=== PATIENT | female | born 1985 | race Caucasian/White ===

== ENCOUNTER → 2017-03-30 | Outpatient (CLI) | payer OTHER | LOC: FIMAGING 12:05 | PROVIDERS: ATTEND Advanced Practice Midwife | DX: Z36 Encounter for antenatal screening of mother (principal) ==

== ENCOUNTER 2017-06-29 20:13 | Observation (INO) | payer SELFPAY ==
[2017-06-29] MEDS ORDERED: LR 1,000 ML IV ONE (20:56)
--- NOTE | 2017-06-29 21:01 | SOAPPROG ---
SOAP Progress Note Assessment/Plan: Assessment: 31-year-old @ 34.5 weeks with c/o contractions since this afternoon. Plan: 1. IV Fluid Hydration 2. Monitor [place] and FHR 3. Await fFN results 06/29/17 20:57 Subjective: 31 yo @ 34.5 weeks presents with complaints of uterine cramping since afternoon. She states cramping has lessened since she decided to head to hospital. She denies loss of fluid or vaginal bleeding. She has h/o 1 prior vaginal delivery at term in October 2015. She has received care from midwives at [facility] during current . She denies problems during current . Objective: Bedside US: Transabdominal: Vertex, anterior placenta, grossly normal fluid and anatomy Transvaginal: CL = 4.27cm Physical Exam - Physical Exam General Appearance: alert, no apparent distress Neck: supple Respiratory: lungs clear, normal breath sounds Cardiac/Chest: regular rate, rhythm Abdomen: non-tender, soft, other (gravid, S=D) Pelvic Exam: normal external exam, other (fFN and GBS swabs performed, cervix and vaginal WNL with no pooling on SSE, CE: FT external os, thick, posterior) Rectal: deferred Skin: normal color, warm/dry Extremities: normal range of motion, non-tender, normal inspection Neuro/Psych: no motor/sensory deficits, alert, normal mood/affect, oriented x 3 ICD10 Worksheet Patient Problems: Problems Problem Status Onset uterine contractions Acute - ICD10 Problem Qualifiers (1) uterine contractions
--- NOTE | 2017-06-29 21:49 | PDGENHP ---
History and Physical - Chief Complaint labor, transfer from [facility] - History of Present Illness 36-year-old G1 @ 40.1 weeks gestation (EDC 06/21/17 by LMP c/w scan) presents after trial of labor at [facility]. She was reportedly 6 cm dilated when she decided to present to [facility]. Care has been with [facility] midwives. Past medical history is significant for anxiety, not currently on meds. No complications in current . A+ / Antibody screen negative / RPR NR / HIV NR / Rubella Immune / HBsAg Neg / Hep C Neg / Chlamydia/ Gonorrhea Neg/Neg / cfDNA WNL / 1hr GTT 81 / GBS Negative. History Information - Allergies/Home Medication List Allergies/Adverse Reactions: No Known Allergies Allergy (Unverified 06/29/17 20:50) - Social History Smoking Status: Former smoker Review of Systems Review of Systems: Physical Exam Physical Exam: Assessment & Plan Assessment: uterine contractions (Acute)
--- NOTE | 2017-06-29 23:04 | SOAPPROG ---
SOAP Progress Note Assessment/Plan: Assessment: 31-year-old @ 34.5 weeks with c/o contractions since this afternoon. Plan: 1. IV Fluid Hydration 2. Monitor [place] and FHR 3. Await fFN results 06/29/17 20:57 06/29/17 23:02 Contractions abated s/p IVF NST Reactive, Cat I fFN Negative, CL = >4cm CE: FT external os with no change on repeat exam Subjective: Patient reports that she has not felt contractions since IVF hydration. Wants to go home if not in labor. Objective: CE: FT/thick/posterior/no change from initial exam FHR: 140, cat I [place]: occasional contractions ICD10 Worksheet Patient Problems: Problems Problem Status Onset uterine contractions Acute - ICD10 Problem Qualifiers (1) uterine contractions
== END 2017-06-29 23:15 | disposition home or self-care (01) ==
LOC: FLD 20:13
PROVIDERS: ADMIT Obstetrics & Gynecology Gynecology; ATTEND Obstetrics & Gynecology Gynecology
DX: O60.03 Preterm labor without delivery, third trimester (principal); O99.824 Streptococcus B carrier state complicating childbirth; Z3A.34 34 weeks gestation of pregnancy
CPT/HCPCS: G0378